=== PATIENT | male | born 1950 | race Caucasian/White ===

== ENCOUNTER 2021-12-19 10:27 | Emergency (ER) | payer OTHER ==
[~2021-12-19 10:27] MED LIST: AMARYL 2MG TABLE2 MG PO; AMOXICILLIN500 MG PO; ASPIRIN CHEWABL81 MG PO; COREG 6.25MG6.25 MG PO; DIOVAN160 MG PO; METFORMIN HCL500 MG PO; MOBIC7.5 MG PO; NEURONTIN300 MG PO; PRILOSEC20 MG PO
== END 2021-12-19 13:38 | disposition home or self-care (01) ==
LOC: FER 10:27
DX: S61.411A Laceration without foreign body of right hand, initial encounter (principal); I10 Essential (primary) hypertension; E11.9 Type 2 diabetes mellitus without complications; Z23 Encounter for immunization; Z88.8 Allergy status to other drugs, medicaments and biological substances; Z87.891 Personal history of nicotine dependence; W22.8XXA Striking against or struck by other objects, initial encounter
CPT/HCPCS: 90471; 90715; 99283